=== PATIENT | female | born 1990 | race Hispanic/Latino ===

== ENCOUNTER 2022-09-04 22:10 | Emergency (ER) | payer SELFPAY ==
[2022-09-05] MEDS ORDERED: Orphenadrine Citrate 60 MG/2 ML VIAL ONE (01:11)
== END 2022-09-05 04:30 | disposition home or self-care (01) ==
LOC: ERS 22:10
DX: M54.6 Pain in thoracic spine (principal)
CPT/HCPCS: 72125; 72128; 96372; J2360